=== PATIENT | male | born 1980 | race Caucasian/White ===

== ENCOUNTER 2020-04-13 09:19 | Day surgery (SDC) | payer OTHER, BC ==
[~2020-04-13] VITALS: Wt 92.7 kg
[2020-04-13] MEDS ORDERED: ALPRAZOLAM2 M1 PO (10:16)
[2020-04-13] MEDS ORDERED: ZOLP10 PO (10:17)
[2020-04-13] MEDS ORDERED: ZEGERID 40 MG1 EAC1 PO (10:18)
== END 2020-04-13 12:42 | disposition home or self-care (01) ==
LOC: ORSCSDS 09:19
PROVIDERS: Orthopaedic Surgery
PROC: 0KNS0ZZ Release Right Lower Leg Muscle, Open Approach (ICD-10-PCS; principal; 2020-04-13 10:30)
PROC: 01QH0ZZ Repair Peroneal Nerve, Open Approach (ICD-10-PCS; principal; 2020-04-13 10:30)
DX: M62.89 Other specified disorders of muscle (principal); Z87.891 Personal history of nicotine dependence; E78.00 Pure hypercholesterolemia, unspecified; Z79.899 Other long term (current) drug therapy; K21.9 Gastro-esophageal reflux disease without esophagitis
CPT/HCPCS: A9270; J1100; J1885; J2250; J2405; J2704; J2795; J3010; J7120

== ENCOUNTER 2023-08-20 08:16 | Emergency (ER) | payer OTHER ==
[~2023-08-20] VITALS: Ht 175.3 cm; Wt 102.1 kg
[~2023-08-20 08:16] MED LIST: ALPRAZOLAM2 M1 PO; SULF500; ZEGERID 40 MG1 EAC1 PO; ZOLP10 PO
[2023-08-20 09:01] VITALS: BP 139/101
[2023-08-20] MEDS ORDERED: Ketorolac Tromethamine 30mg Vial IV ONE (09:10)
[2023-08-20] MEDS ORDERED: IBUP800 PO (09:37)
[2023-08-20] MEDS ORDERED: OXAYDO5 M1 PO (10:27)
== END 2023-08-20 10:50 | disposition home or self-care (01) ==
LOC: ER 08:16
DX: S83.206A Unspecified tear of unspecified meniscus, current injury, right knee, initial encounter (principal); W18.49XA Other slipping, tripping and stumbling without falling, initial encounter; Z79.899 Other long term (current) drug therapy; Z88.1 Allergy status to other antibiotic agents; Z88.5 Allergy status to narcotic agent
CPT/HCPCS: 73562-RT; 96374; 99283-25; J1885

== ENCOUNTER 2023-08-27 08:57 | Day surgery (SDC) | payer OTHER ==
[~2023-08-27] VITALS: Ht 175.3 cm; Wt 100.0 kg
[~2023-08-27 08:57] MED LIST changes: +IBUP800 PO; +OXAYDO5 M1 PO
[2023-08-27] MEDS ORDERED: Lactated Ringer's 1,000 ML IV ONE (09:22)
[2023-08-27] MEDS ORDERED: Cymbalta20 MG PO (09:28)
[2023-08-27] MEDS ORDERED: HYDPAM25 PO (09:29)
[2023-08-27] MEDS ORDERED: EPINEPhrine HCl 1 MG / ML 30ML Vial ONE (09:30)
[2023-08-27] MEDS ORDERED: MESA250ER (09:32)
[2023-08-27] MEDS ORDERED: propofoL 20 ML IV ONE (09:35)
[2023-08-27] MEDS ORDERED: FentaNYL Citrate 50 MCG/ML 2 ML Injection ONE ×2 (09:35→11:34)
[2023-08-27] MEDS ORDERED: Lidocaine HCl 4% 5 ML SDA ONE (09:36)
[2023-08-27] MEDS ORDERED: Ondansetron HCl 2 MG / ML 2ML Vial ONE (09:54)
[2023-08-27] MEDS ORDERED: Rocuronium Bromide 10 MG/ML 5ML Injection IV ONE (09:54)
[2023-08-27] MEDS ORDERED: Dexamethasone Sod Phos 10 MG/ML 1ML VIAL ONE (09:54)
[2023-08-27] MEDS ORDERED: Lidocaine 2%-Epineph 1:100000 20 ML MDV INJ ONE ×3 (10:02)
[2023-08-27] MEDS ORDERED: Sodium Chloride 0.9% Inj 10 ML Vial INJ ONE (10:02)
--- NOTE | 2023-08-27 10:05 | NUR ---
08/27/23 Kellie Becerra 5ML LIDOCAINE 2% WITH EPI 1:100,000 MIXED 1:1 WITH NORMAL SALINE TO MAKE LIDOCAINE 1% WITH EPI 1:200,000 FOR INJECTION AT OPSITE. 30ML OF EPI (1MG/ML) ON FIELD TO SOAK PLEDGETS FOR NASAL PACKING.
[2023-08-27] MEDS ORDERED: Ketorolac Tromethamine 30mg Vial ONE ×2 (10:11→10:49)
[2023-08-27] MEDS ORDERED: Glycopyrrolate 0.2 MG/ML 5ML VIAL ONE (10:58)
[2023-08-27] MEDS ORDERED: Neostigmine Methylsulfate 5MG/5ML SYR ONE (10:58)
[2023-08-27] MEDS ORDERED: HYDROmorphone HCl/Pf 1MG SYR ONE (11:03)
--- NOTE | 2023-08-27 11:30 | NUR ---
08/27/23 1130 Noemy Li PT CALM AND COOPERATIVE WITH CARE PROVIDED. PT ABLE TO CONVERSE, ANSWERING QUESTIONS APPROPRIATELY. PT STATED HIS PAIN IS A 6/10, PAINFUL AT THE SEPTUM AREA WHERE HIS LIP MEETS THE NOSE.
[2023-08-27 11:49] VITALS: BP 134/94
[2023-08-27] MEDS ORDERED: OxyCODONE HCL 5 MG TAB ONE (12:21)
== END 2023-08-27 12:39 | disposition home or self-care (01) ==
LOC: ORSCSDS 08:57
PROVIDERS: Otolaryngology
PROC: 09SM0ZZ Reposition Nasal Septum, Open Approach (ICD-10-PCS; principal; 2023-08-27 10:30)
DX: J34.2 Deviated nasal septum (principal); J34.3 Hypertrophy of nasal turbinates; K21.9 Gastro-esophageal reflux disease without esophagitis; Z79.899 Other long term (current) drug therapy
CPT/HCPCS: A9270; J0171; J1100; J1170; J1885; J2001; J2405; J2704; J2710; J3010

== ENCOUNTER 2023-11-12 07:39 | Day surgery (SDC) | payer OTHER ==
[~2023-11-12] VITALS: Ht 175.3 cm; Wt 102.8 kg
[~2023-11-12 07:39] MED LIST changes: +Cymbalta20 MG PO; +HYDPAM25 PO; +MESA250ER
[2023-11-12] MEDS ORDERED: NS 50 ML IV ONE (07:59)
[2023-11-12] MEDS ORDERED: CeFAZolin Sodium 2,000 MG VIAL ONE (07:59)
[2023-11-12] MEDS ORDERED: Lactated Ringer's 1,000 ML IV ONE (08:29)
[2023-11-12] MEDS ORDERED: FentaNYL Citrate 50 MCG/ML 2 ML Injection ONE ×4 (09:00→12:09)
[2023-11-12] MEDS ORDERED: propofoL 20 ML IV ONE (09:00)
[2023-11-12] MEDS ORDERED: Midazolam HCl 1MG / ML 2ML Vial ONE (09:25)
[2023-11-12] MEDS ORDERED: Dexamethasone Sod Phos 10 MG/ML 1ML VIAL ONE (09:45)
[2023-11-12] MEDS ORDERED: Ondansetron HCl 2 MG / ML 2ML Vial ONE (09:45)
[2023-11-12] MEDS ORDERED: Bupivacaine 0.5% HCl 5 MG/ML 30MLVIAL INJ ONE (10:16)
[2023-11-12] MEDS ORDERED: EPINEPhrine HCl 1 MG/ML 1ML Amp XX ONE (10:17)
[2023-11-12] MEDS ORDERED: Sugammadex Sodium 200 MG/2ML SDV (100 MG/ML) ONE (10:21)
[2023-11-12] MEDS ORDERED: HYDROcodone 5-APAP 325 TAB ONE (11:43)
[2023-11-12 12:16] VITALS: BP 115/54
== END 2023-11-12 12:21 | disposition home or self-care (01) ==
LOC: ORSCSDS 07:39
PROVIDERS: Orthopaedic Surgery
PROC: 0QC Lower Bones, Extirpation (ICD-10-PCS; principal; 2023-11-12 09:00)
DX: M87.051 Idiopathic aseptic necrosis of right femur (principal); K21.9 Gastro-esophageal reflux disease without esophagitis; Z79.899 Other long term (current) drug therapy
CPT/HCPCS: A9270; C1769; J0171; J0690; J1100; J2250; J2405; J2704; J3010

== ENCOUNTER 2024-03-05 07:36 | Day surgery (SDC) | payer OTHER ==
[~2024-03-05] VITALS: Ht 175.3 cm; Wt 94.1 kg
[~2024-03-05 07:36] MED LIST changes: -MESA250ER; +MESA250ER PR; +ONDA4ODT MM; +propofoL 200 ML IV ONE
[2024-03-05] MEDS ORDERED: ASPI81CH PO (08:13)
[2024-03-05] MEDS ORDERED: ALPR.25 PO (08:14)
[2024-03-05] MEDS ORDERED: Lactated Ringer's 1,000 ML IV ONE ×2 (08:28→12:04)
[2024-03-05] MEDS ORDERED: EPINEPhrine HCl 1 MG / ML 30ML Vial ONE (08:40)
[2024-03-05] MEDS ORDERED: Cocaine HCl 4% Solution 4 ML ONE (08:40)
[2024-03-05] MEDS ORDERED: Lidocaine 2%-Epineph 1:100000 20 ML MDV ONE (08:41)
[2024-03-05] MEDS ORDERED: Lidocaine 2%-Epineph 1:200000 20 ML SDV ONE (08:42)
[2024-03-05] MEDS ORDERED: Acetaminophen 500 MG Tab ONE (08:49)
[2024-03-05] MEDS ORDERED: Ondansetron HCl 2 MG / ML 2ML Vial ONE (09:09)
[2024-03-05] MEDS ORDERED: Dexamethasone Sod Phos 10 MG/ML 1ML VIAL ONE (09:09)
[2024-03-05] MEDS ORDERED: FentaNYL Citrate 50 MCG/ML 2 ML Injection ONE ×4 (09:10→12:49)
[2024-03-05] MEDS ORDERED: Phenylephrine HCl 100 MCG/ML-NS 10MLSYR (1MG/10ML) ONE (09:57)
[2024-03-05] MEDS ORDERED: propofoL 20 ML IV ONE ×3 (10:18→11:12)
[2024-03-05] MEDS ORDERED: OxyCODONE HCL 5 MG TAB ONE (13:01)
--- NOTE | 2024-03-05 13:17 | NUR ---
03/05/24 1317 Genesis Cordova PATIENT SITTING IN CHAIR, TOLERATING PO FLUIDS AND SNACKS. RECEIVED REPORT FROM YASH ANDERSON.
[2024-03-05 13:22] VITALS: BP 101/66
== END 2024-03-05 13:55 | disposition home or self-care (01) ==
LOC: ORSCSDS 07:36
PROVIDERS: Otolaryngology
PROC: 0NBR0ZZ Excision of Maxilla, Open Approach (ICD-10-PCS; principal; 2024-03-05 09:00)
DX: J34.89 Other specified disorders of nose and nasal sinuses (principal); J34.2 Deviated nasal septum; K21.9 Gastro-esophageal reflux disease without esophagitis; K50.90 Crohn's disease, unspecified, without complications; Z87.891 Personal history of nicotine dependence; Z79.899 Other long term (current) drug therapy; E66.9 Obesity, unspecified; Z68.30 Body mass index [BMI] 30.0-30.9, adult; Z79.85 Long-term (current) use of injectable non-insulin antidiabetic drugs
CPT/HCPCS: A9270; C1713; C9046; J0171; J1100; J2371; J2405; J2704; J3010

== ENCOUNTER 2024-03-09 18:50 | Emergency (ER) | payer OTHER ==
[~2024-03-09] VITALS: Ht 175.3 cm; Wt 95.2 kg
[~2024-03-09 18:50] MED LIST changes: +ALPR.25 PO; +ASPI81CH PO; -propofoL 200 ML IV ONE
[2024-03-09] MEDS ORDERED: Ondansetron HCl 2 MG / ML 2ML Vial IV ONE (20:15)
[2024-03-09] MEDS ORDERED: Lactated Ringer's 1,000 ML IV ONE ×2 (20:15→22:00)
[2024-03-09 20:27] LABS: Source, Urine Clean Catch
[2024-03-09 20:27] LABS: BASOPHILS ABSOLUTE AUTO 0.04 K/mm3 (0.00-0.23); BASOPHILS PERCENT AUTO 0 % (0-2); EOSINOPHILS ABSOLUTE AUTO 0.05 K/mm3 (0.00-0.68); EOSINOPHILS PERCENT AUTO 1 % (0-6); Hematocrit 49.4 % (37.0-53.0); Hemoglobin 17.9 g/dL (13.5-17.5); IMMATURE GRAN ABSOLUTE AUTO 0.08 K/mm3 (0.00-0.10); IMMATURE GRAN PERCENT AUTO 1 % (0-1); LYMPHOCYTES ABSOLUTE AUTO 2.25 K/mm3 (0.84-5.20); LYMPHOCYTES PERCENT AUTO 22 % (21-46); MONOCYTES ABSOLUTE AUTO 0.69 K/mm3 (0.16-1.47); MONOCYTES PERCENT AUTO 7 % (4-13); Mean Corpuscular HGB 32.4 pg (26.0-34.0); Mean Corpuscular HGB Conc 36.2 g/dL (31.5-36.5); Mean Corpuscular Volume 90 fL (80-100); Mean Platelet Volume 8.8 fL (9.1-12.4); NEUTROPHILS ABSOLUTE AUTO 7.15 K/mm3 (1.96-9.15); NEUTROPHILS PERCENT AUTO 70 % (41-73); Platelet Count 368 K/mm3 (150-400); RDW Coefficient Variation 13.2 % (11.7-14.2); RDW Standard Deviation 43.5 fL (35.1-46.3); Red Blood Cell Count 5.52 M/mm3 (4.30-5.90); White Blood Cell Count 10.26 K/mm3 (4.00-11.30)
[2024-03-09 20:36] LABS: Bilirubin, Urine Neg (Neg); Blood, Urine Neg (Neg); Glucose Qualitative, Urine Neg (Neg); Ketones, Urine 3+ (Neg); Leukocyte Esterase, Urine Neg (Neg); Nitrite, Urine Neg (Neg); Protein, Urine Neg (Neg); Specific Gravity, Urine 1.015 (1.003-1.022); Urobilinogen, Urine NORM (Normal)
[2024-03-09 20:37] LABS: Appearance, Urine Clear (Clear); Color, Urine Yellow (P-Yellow)
[2024-03-09 20:40] LABS: U Amphetamine Screen Not Detected; U Barbituate Screen Not Detected; U Benzodiazapine Screen DETECTED; U Methamphetamine Screen Not Detected
[2024-03-09 20:41] LABS: U Buprenorphine Screen Not Detected; U Cannabinoids Screen DETECTED; U Cocaine Screen Not Detected; U Methadone Screen Not Detected; U Opiates Screen DETECTED; U Oxycodone Screen Not Detected; U Phencyclidine Screen Not Detected
[2024-03-09] MEDS ORDERED: Metoclopramide HCl 5MG / ML 2ML Vial IV ONE (20:45)
[2024-03-09] MEDS ORDERED: Morphine Sulfate 4 MG/1 ML Injection IV ONE (20:45)
[2024-03-09 21:46] LABS: Albumin, Blood 3.8 g/dL (3.4-5.0); Albumin/Globulin Ratio 1.2 (0.8-1.8); Bilirubin, Total 0.5 mg/dL (0.1-1.0); Calcium, Blood 9.2 mg/dL (8.5-10.1); Creatinine, Blood 0.64 mg/dL (0.60-1.20); Globulin, Blood 3.3 g/dL (2.2-4.0); Magnesium, Blood 1.7 mg/dL (1.6-2.4); Potassium, Blood 3.8 mmol/L (3.5-5.5); Total Protein, Blood 7.1 g/dL (6.4-8.2)
[2024-03-09] MEDS ORDERED: Haloperidol Lactate Inj. 5 MG/ML Injection IV ONE ×2 (22:10→22:50)
[2024-03-09] MEDS ORDERED: Robaxin750 MG PO (23:20)
[2024-03-09 23:50] VITALS: BP 155/118
== END 2024-03-09 23:50 | disposition home or self-care (01) ==
LOC: ER 18:50
PROVIDERS: Student in an Organized Health Care Education/Training Program
DX: R11.2 Nausea with vomiting, unspecified (principal); R10.9 Unspecified abdominal pain; E86.0 Dehydration; R55 Syncope and collapse; Z87.891 Personal history of nicotine dependence; Z88.1 Allergy status to other antibiotic agents; Z79.82 Long term (current) use of aspirin; Z79.899 Other long term (current) drug therapy
CPT/HCPCS: 36415; 71045; 74177; 80053; 81003; 83735; 84484; 85025; 93005; 93010; 96361; 96374-59; 96375; 96376; 99284-25; J1630; J2270; J2405; J2765; J7120; Q9967

== ENCOUNTER 2024-06-16 06:21 | Day surgery (SDC) | payer OTHER ==
[~2024-06-16] VITALS: Ht 174 cm; Wt 90.9 kg
[2024-06-16] VITALS (13 sets, daily range): BP systolic 118–150; BP diastolic 65–128
[~2024-06-16 06:21] MED LIST changes: +ALLO100 PO; -ALPR.25 PO; +AZULFIDINE500 M1 PO; +Acetaminophen 500 MG Tab PO SCH; +CANASA1000 MG PO; +CeFAZolin Sodium 2,000 MG in NS 100 ML IV SCH; +Chlorhexidine Mouth Care 15 ML UDC MT SCH; -Cymbalta20 MG PO; +DULO30 PO; +Lactated Ringer's 1,000 ML IV SCH; -MESA250ER PR; +Norco 10-325 T1 EACH PO; +OMEPRAZOLE20 M1 PO; +OxyCODONE HCL 10 MG TABCR PO SCH; +Robaxin750 MG PO; +Ropivacaine 0.5% HCl/Pf 123.125 MG,EPINEPHrine HCL 0.25 MG,Ketorolac Tromethamine 15 MG... INFIL SCH
[2024-06-16] MEDS ORDERED: MESALAMINE800 M7 PO (06:41)
--- NOTE | 2024-06-16 06:46 | NUR ---
PATIENT REPORTS TOLERATING ANCEF WITH HIS LAST SURGERY IN 2023. PATIENT HAS ANCEF ORDERED TODAY AND AGREES TO HAVE IT DESPITE SENSITIVITY TO ERYTHROMYCIN AND CEPHALEXIN.
[2024-06-16] MEDS ORDERED: Tranexamic Acid 100 ML IV SCH (06:47)
[2024-06-16] MEDS ORDERED: FentaNYL Citrate 50 MCG/ML 2 ML Injection ONE (07:03)
[2024-06-16] MEDS ORDERED: Midazolam HCl 1MG / ML 2ML Vial ONE ×3 (07:03→07:26)
[2024-06-16] MEDS ORDERED: CeFAZolin Sodium 2,000 MG VIAL ONE (07:12)
--- NOTE | 2024-06-16 07:19 | NUR ---
PATIENT STATES HE SHAVED RIGHT GROIN HIMSELF AT HOME. SKIN INTACT, BUT SMALL RED BUMPS NOTED TO RIGHT GROIN. DR NEW NOTIFIED.
[2024-06-16] MEDS ORDERED: propofoL 60 ML IV ONE (07:23)
[2024-06-16] MEDS ORDERED: Lidocaine HCl 2% 20 ML MDV ONE (07:25)
[2024-06-16] MEDS ORDERED: ePHEDrine Sulfate 50 MG/ML 1ML Injection ONE (08:01)
[2024-06-16] MEDS ORDERED: Phenylephrine HCl 100 MCG/ML-NS 10MLSYR (1MG/10ML) ONE (08:05)
[2024-06-16] MEDS ORDERED: Metoclopramide HCl 5MG / ML 2ML Vial IV PRN (08:10)
[2024-06-16] MEDS ORDERED: Magnesium Hydroxide Conc 10 ML UDC PO PRN (08:10)
[2024-06-16] MEDS ORDERED: OxyCODONE HCL 5 MG TAB PO PRN ×2 (08:10→08:20)
[2024-06-16] MEDS ORDERED: Ondansetron HCl 2 MG / ML 2ML Vial IV PRN ×2 (08:10→08:30)
[2024-06-16] MEDS ORDERED: DiphenhydrAMINE HCL 25 MG Cap PO PRN (08:15)
[2024-06-16] MEDS ORDERED: HYDROmorphone HCl/Pf 1MG SYR IV PRN ×3 (08:15→08:25)
[2024-06-16] MEDS ORDERED: Bisacodyl 10 MG Supp PR PRN (08:15)
[2024-06-16] MEDS ORDERED: Prochlorperazine Edisylate 10 mg Vial IV PRN (08:20)
[2024-06-16] MEDS ORDERED: Promethazine HCl 25 MG Tab PO PRN (08:20)
[2024-06-16] MEDS ORDERED: ePHEDrine Sulfate 50 MG/ML 1ML Injection IV PRN (08:25)
[2024-06-16] MEDS ORDERED: FentaNYL Citrate 50 MCG/ML 2 ML Injection IV PRN ×2 (08:25)
[2024-06-16] MEDS ORDERED: Ondansetron HCl 2 MG / ML 2ML Vial ONE (08:25)
[2024-06-16] MEDS ORDERED: Lactated Ringer's 1,000 ML IV SCH (08:30)
[2024-06-16] MEDS ORDERED: Docusate Sodium 100 MG Cap PO SCH (09:00)
[2024-06-16] MEDS ORDERED: Ketorolac Tromethamine 30mg Vial ONE (10:06)
--- NOTE | 2024-06-16 10:31 | NUR ---
ARRIVAL TO SURGICAL FLOOR ARRIVED TO FLOOR A&O x4. ABLE TO WIGGLE TOES, PPP. STATES NO PAIN OR NAUSEA. CURRENTLY ON 2L NC. LUNG SOUNDS CLEAR, HRR. INCISION SITE WNL, COLD THERAPY APPLIED. SNACKS AND DRINKS GIVEN.
[2024-06-16] MEDS ORDERED: Tranexamic Acid 1,000 MG in NS 100 ML IV ONE (10:45)
[2024-06-16] MEDS ORDERED: Ketorolac Tromethamine 15mg Vial IV SCH (12:00)
[2024-06-16] MEDS ORDERED: OXYC5 PO (12:19)
[2024-06-16] MEDS ORDERED: ASPI81CH PO (12:19)
[2024-06-16] MEDS ORDERED: ACET500 PO (12:19)
[2024-06-16] MEDS ORDERED: DOCU100 PO (12:20)
--- NOTE | 2024-06-16 12:58 | NUR ---
DISCHARGE SUMMARY PT TOLERATING FOOD AND FLUIDS WELL. PAIN CONTROLLED. VOIDED SUCCESSFULLY. INCISION SITE WNL. WORKED WITH THERAPY. DISCHARGE INSTRUCTIONS REVIEWED. ESCORTED OUT VIA WC.
[2024-06-16] MEDS ORDERED: CeFAZolin Sodium 2,000 MG in NS 100 ML IV SCH (16:00)
[2024-06-16] MEDS ORDERED: Acetaminophen 500 MG Tab PO SCH (16:00)
[2024-06-16] MEDS ORDERED: Allopurinol 100 MG Tab PO SCH (21:00)
[2024-06-16] MEDS ORDERED: Omeprazole 20 MG CapCR PO SCH (21:00)
[2024-06-16] MEDS ORDERED: DULoxetine HCL 30 MG Cap DR PO SCH (21:00)
[2024-06-17] MEDS ORDERED: Aspirin 81 MG Chew PO SCH (09:00)
== END 2024-06-16 13:00 | disposition home or self-care (01) ==
LOC: ORSCMMR 06:21 → ORD 07:30 → ORSCMMR 07:30 → SURS 10:21 → ORSCMMR 13:00
PROVIDERS: Orthopaedic Surgery
PROC: 0SR90JA Replacement of Right Hip Joint with Synthetic Substitute, Uncemented, Open Approach (ICD-10-PCS; principal; 2024-06-16 07:30)
DX: M87.051 Idiopathic aseptic necrosis of right femur (principal); M87.052 Idiopathic aseptic necrosis of left femur; E66.9 Obesity, unspecified; Z87.891 Personal history of nicotine dependence; Z68.30 Body mass index [BMI] 30.0-30.9, adult; Z79.899 Other long term (current) drug therapy
CPT/HCPCS: 72170; 97116; 97162; 97530; A9270; C1713; C1776; J0171; J0690; J0735; J1885; J2250; J2371; J2405; J2704; J2795; J3010; J7120